=== PATIENT | female | born 1990 | race Caucasian/White ===

== ENCOUNTER → 2017-06-21 05:06 | Emergency (ER) | payer OTHER ==
[~2017-06-21 05:06] MED LIST: Acetaminophen IV 1GM/100ML * 1,000 MG in PREMIX* 0 ML IVPB ONE; Labetalol IV* 5 MG/ML 20 ML VIAL IV PUSH ONE; NS 0.9% 1000 ML* 1,000 ML IV ONE; Ondansetron INJ* 2 MG/ML VIAL IV ONE
[2017-06-21 07:27] LABS: Urine Bacteria Absent (Absent); Urine Bilirubin Negative (Negative); Urine Glucose 1+(50 mg/dL) (Negative); Urine Nitrite Negative (Negative)
[2017-06-21 08:48] LABS: Hematocrit 36 % (35-47); Hemoglobin 12.2 g/dl (12.0-16.0); Mean Corpuscular HGB Conc 34 g/dl (31-36); Mean Corpuscular Hemoglobin 29 pg (27-31); Mean Corpuscular Volume 85 fL (80-97); Mean Platelet Volume 8 um3 (7.4-10.4); Red Blood Count 4.27 10^6/ul (4.0-5.4); Red Cell Distribution Width 14 % (10.5-15); White Blood Count 13.2 10^3/ul (3.5-10.8)
[2017-06-21 09:02] LABS: Albumin 3.7 g/dL (3.2-5.2); Calcium 9.2 mg/dL (8.6-10.3); EGFR African American 171.8 (>60); EGFR Non-African American 133.6 (>60); Globulin 3.5 g/dL (2-4); Potassium 3.7 mmol/L (3.5-5.0); Total Bilirubin 0.4 mg/dL (0.2-1.0); Total Protein 7.2 g/dL (6.4-8.9)
[2017-06-21 10:15] LABS: Magnesium 1.8 mg/dL (1.9-2.7)
--- NOTE | 2017-06-21 12:33 | ED ---
Jean Orlando Angela, scribed for Jonathon Ledesma MD on 06/21/17 at 0808 . Headache - HPI Summary HPI Summary: This pt is a 26 y/o female, currently 10 weeks , presenting to [facility] c/o sudden onset of headache since 1600 yesterday. She additionally c/o nausea and vomiting. Pt notes 5 episodes of emesis since 0300 today. She states this is the worst headache of her life. Pt reports her headache in located in the frontal area and it has progressively worsened. She describes her headache as constant pressure with intermittent throbbing. When her headache began she was at rest and it became suddenly worse within the period of 5 minutes. Yesterday, her pain was rated 10/10 in severity, currently it is rated 8/10 in severity. She denies visual changes, problems walking, photophobia, neck pain, LE pain, UE pain, dysuria. Her pain is aggravated when her head is down and lifts her head up. Pt took Tylenol yesterday but was unable to keep it down. Pt states she has never had emesis with her past headaches and they usually only last approximately 1 hour. She reports usually Tylenol alleviates her pain. During her last , she had mild headaches without nausea or vomiting. PMHx: HTN with . Pt denies any past surgical history. - History Of Current Complaint Chief Complaint: EDHeadache Stated Complaint: HEADACHE/VOMITING Hx Obtained From: Patient Onset/Duration: Started hours ago Initially Headache Was: "Worst Headache Ever" Timing: Hours Character: Throbbing - intermittent, Pressure - constant Associated Signs And Symptoms: Nausea, Vomiting, Other (Noted In Comments) - NEG : visual changes, photophobia, neck pain, LE pain, UE pain, dysuria - Allergies/Home Medications Allergies/Adverse Reactions: Allergies Allergy/AdvReac Type Severity Reaction Status Date / Time No Known Allergies Allergy Verified 09/03/14 05:17 PMH/Surg Hx/FS Hx/Imm Hx Endocrine/Hematology History: Denies: Hx Diabetes Cardiovascular History: Reports: Hx Hypertension - with Respiratory History: Reports: Hx Asthma Infectious Disease History: No Infectious Disease History: Denies: Traveled Outside the [place] in Last 30 Days - Family History Known Family History: Positive: Other - paternal grandfather: aneurysm, HTN, high cholesterol - Social History Alcohol Use: Rare Substance Use Type: Reports: None Smoking Status (MU): Never Smoked Tobacco Have You Smoked in the Last Year: No Review of Systems Negative: Photophobia, Blurred Vision, Diplopia Positive: Vomiting, Nausea Negative: dysuria Positive: Other - Negative LE pain or UE pain Neurological: Other - NEGATIVE: gait problems Positive: Headache All Other Systems Reviewed And Are Negative: Yes Physical Exam - Summary Physical Exam Summary: Appearance: Well-appearing, Well-nourished Skin: Warm Eyes: Normal. PERRL about 4 mm equal lateral. No photophobia. EOMI ENT: Normal . No phonophobia. Neck: Supple, nontender. Normal ROM of neck. Respiratory: Clear to auscultation Cardiovascular: Normal Abdomen: Soft, nontender Bowel: Present Musculoskeletal: Normal, Strength/ROM Intact. normal ROM of neck in all directions. Neurological: Normal, A&Ox3. No neurological deficits. Cranial nerves II-XII are intact. Normal coordinations. Negative Kernig's and brudzinski's signs. No photophobia Psychiatric: Normal Triage Information Reviewed: Yes Vital Signs On Initial Exam: Initial Vitals Temp Pulse Resp BP Pulse Ox 98.0 F 103 16 126/82 98 06/21/17 05:18 06/21/17 05:18 06/21/17 05:18 06/21/17 05:18 06/21/17 05:18 Vital Signs Reviewed: Yes - Shala Coma Scale Coma Scale Total: 15 Diagnostics - Vital Signs Vital Signs Temp Pulse Resp BP Pulse Ox 06/21/17 05:18 98.0 F 103 16 126/82 98 - Laboratory Lab Results: Lab Results 06/21/17 Range/Units 06:10 Urine Color Annie Urine Appearance Turbid Urine pH 5.0 (5-9) Ur Specific Bethany 1.036 H (1.010-1.030) Urine Protein 2+(100 mg/dl) H (Negative) Urine Ketones 2+ H (Negative) Urine Blood Negative (Negative) Urine Nitrate Negative (Negative) Urine Bilirubin Negative (Negative) Urine Urobilinogen Negative (Negative) Ur Leukocyte Esterase Negative (Negative) Urine WBC (Auto) Absent (Absent) Urine RBC (Auto) Absent (Absent) Amorphous Crystals Present H (Absent) Urine Bacteria Absent (Absent) Urine Glucose 1+(50 mg/dl) H (Negative) Urine Ascorbic Acid * H (Negative) Result Diagrams: 06/21/17 08:17 06/21/17 08:17 Lab Statement: Any lab studies that have been ordered have been reviewed, and results considered in the medical decision making process. Re-Evaluation - Re-Evaluation First Eval Re-Evaluation Time: 12:02 Comment: Pt is feeling better. Headache Course/Dx - Course Assessment/Plan: feels better on reevaluation, instructed to fu with obgyn for proteinuria during adn to return for any worsneing headache sxs. agrees to an cong [email or web address] . - Diagnoses Provider Diagnoses: Headache Discharge - Discharge Plan Condition: Improved Disposition: HOME Prescriptions: Ondansetron ODT TAB* [Zofran 4 MG Odt TAB*] 4 mg PO Q8H PRN #6 tab.odt PRN Reason: Nausea - Refractory Patient Education Materials: Acute Headache (ED) Referrals: Taylor Glaser [Primary Care Provider] - Kaleb Saywer MD [Medical Doctor] - Additional Instructions: PLEASE MAKE AN APPOINTMENT FIRST THING IN THE MORNING TO BE SEEN BY YOUR UX ENGINEER TO ADDRESS PROTEIN IN YOUR URINE PLEASE RETURN TO THE EMERGENCY ROOM IF YOU HAVE ANY WORSENING OR CONCERNING SYMPTOMS The documentation as recorded by the Jean butt Angela accurately reflects the service I personally performed and the decisions made by me, Jonathon Ledesma MD.
[2017-06-21 12:49] VITALS: BP 132/68
== END | disposition home or self-care (01) ==
LOC: ED 05:06
DX: O13.1 Gestational [pregnancy-induced] hypertension without significant proteinuria, first trimester (principal); R51 Headache; R11.0 Nausea; Z3A.10 10 weeks gestation of pregnancy; J45.909 Unspecified asthma, uncomplicated
CPT/HCPCS: 36415; 80053; 81003; 81015; 83735; 85025; 85610; 85730; 96365; 96375; 99282; J2405

== ENCOUNTER 2018-01-02 10:15 | Inpatient (IN) | payer OTHER ==
[2018-01-02] MEDS ORDERED: Oxytocin in LR* 20 UNITS/1,000 ML BAG IVPB SCH (14:00)
--- NOTE | 2018-01-02 14:22 | HP ---
General Information - General Information Maternal Age: 27 Grav: 3 Para: 2 SAB: 0 IEA: 0 Estimated Due Date: 01/11/18 Determined By: LMP Gestational Age in Weeks and Days: 38 Weeks and 5 Days Maternal Blood Type and Rh: O Positive - Results this Serology/RPR Result: Non-Reactive Rubella Result: Immune HBsAg Result: Negative HIV Result: Negative GBS Culture Result: Negative Past Medical History Delivery History: Hx Uncomplicated Vaginal Delivery, See Records Pertinent Past Medical History: See Records - Obesity BMI 47.9, Asthma (childhood), HTN with prior Pertinent Past Surgical History: See Records Pertinent Family History: See Records - Antepartal Records Antepartal Records: Reviewed, Complicated by: - Maternal obesity and Macrosomia by ultrasound. Review of Systems Constitutional: Comfortable CV Complaint: No Respiratory: Shortness of Breath: No Gastrointestinal: No Nausea/Vomiting, Normal Bowel Movement Genitourinary: Leaking Fluid, No Dysuria, No Bleeding Musculoskeletal: No Complaint Neurological: No Headache, No Visual Changes Movement: Normal Exam Allergies/Adverse Reactions: Allergies No Known Allergies Allergy (Verified 09/03/14 05:17) Height 5' 5" Weight 318 lbs Temp 98.8 BP 134/59 P 76 RR 17 Lab Values - Entire Visit: Laboratory Tests 01/02/18 10:44 Vag Amniotic Fld Detect Positive - Measurements Height: 5 ft 5 in Weight: 318 lb Weight in lbs: 318 Body Mass Index (BMI): 52.9 Pre- Weight: 285 lb Weight Gained This : 33 lbs and 0 ozs - Exam Abdomen: No Upper Quadrant Pain Breast: Breast Exam Deferred CVA: No CVA Tenderness Extremities: No Edema Heart: Normal Rhythm/Heart Sounds HEENT: No Significant Findings Lungs: Clear Bilaterally Rectal: Rectal Exam Deferred Reflexes: DTR 2+ Thyroid: No Thyromegaly - Abdominal Exam Abdomen Exam: Non-Tender - Ultrasound/Biophysical Profile Ultrasound Status: Not Done Targeted Exam Findings See L&D Outpatient Visit Provider Note for Findings: N/A Cervical Exam: 6cm Effacement: 80% Station: 0 Presenting Part: Vertex Membrane Status: SROM Amniotic Fluid Evaluation: Positive ROM Plus EFM Findings - External Monitor Findings External Monitor Findings: Accelerations Present Contractions: None Assessment/Plan - Reason for Visit Reason for Visit: Spontaneous rupture of membranes, 38 weeks gestational age. - Obstetrical Risk Factors Obstetrical Risk Factors: Obesity - Plan Plan: Induction
[2018-01-02 14:50] LABS: ABS Basophils 0 10^3/ul (0-0.2); ABS Eosinophils 0.1 10^3/ul (0-0.6); ABS Monocytes 0.8 10^3/ul (0-0.8); ABS Neutrophils 11.6 10^3/ul (1.5-7.7); ABS Nucleated RBC 0 10^3/ul; Eosinophil % 0.8 % (0-6); Hematocrit 32 % (35-47); Hemoglobin 10.6 g/dl (12.0-16.0); Lymphocyte % 13.9 % (25-47); Mean Corpuscular HGB Conc 33 g/dl (31-36); Mean Corpuscular Hemoglobin 27 pg (27-31); Mean Corpuscular Volume 81 fL (80-97); Mean Platelet Volume 8.5 um3 (7.4-10.4); Nucleated Red Blood Cells % 0; Platelet Count 237 10^3/ul (150-450); Red Blood Count 3.95 10^6/ul (4.0-5.4); Red Cell Distribution Width 15 % (10.5-15); White Blood Count 14.7 10^3/ul (3.5-10.8)
[2018-01-02] MEDS ORDERED: OBEPIDURAL* 0 ML EPIDURAL ONE (19:36)
[2018-01-02] MEDS ORDERED: Acetaminophen TAB* 325 MG PO PRN (21:06)
[2018-01-02] MEDS ORDERED: Glycerin ADULT SUPP PR PRN (21:06)
[2018-01-02] MEDS ORDERED: Dibucaine 1% 28.35 GM TUBE PR PRN (21:06)
[2018-01-02] MEDS ORDERED: Witch Hazel PAD* JAR TOPICAL PRN (21:06)
[2018-01-03] MEDS: Ibuprofen TAB* 600 MG PO PRN ×3 (04:38→18:50)
[2018-01-03 05:40] LABS: ABS Basophils 0 10^3/ul (0-0.2); ABS Eosinophils 0.1 10^3/ul (0-0.6); ABS Lymphocytes 2.2 10^3/ul (1.0-4.8); ABS Neutrophils 14.7 10^3/ul (1.5-7.7); ABS Nucleated RBC 0 10^3/ul; Eosinophil % 0.4 % (0-6); Hematocrit 30 % (35-47); Hemoglobin 9.8 g/dl (12.0-16.0); Lymphocyte % 12.4 % (25-47); Mean Corpuscular HGB Conc 33 g/dl (31-36); Mean Corpuscular Hemoglobin 27 pg (27-31); Mean Corpuscular Volume 82 fL (80-97); Mean Platelet Volume 8.5 um3 (7.4-10.4); Nucleated Red Blood Cells % 0; Platelet Count 230 10^3/ul (150-450); Red Blood Count 3.64 10^6/ul (4.0-5.4); Red Cell Distribution Width 15 % (10.5-15); White Blood Count 18.1 10^3/ul (3.5-10.8)
[2018-01-03] MEDS: Ferrous Gluconate TAB* 324 MG TAB PO SCH ×2 (07:56→20:33)
[2018-01-03] MEDS: Docusate CAP* 100 MG PO SCH ×3 (07:56→20:33)
[2018-01-03] MEDS ORDERED: Simethicone TAB* 80 MG TAB.CHEW PO SCH (08:30)
[2018-01-04 07:55] VITALS: BP 132/73
[2018-01-04] MEDS: Ibuprofen TAB* 600 MG PO PRN (07:58)
[2018-01-04] MEDS: Ferrous Gluconate TAB* 324 MG TAB PO SCH (07:58)
== END 2018-01-04 12:00 | disposition home or self-care (01) | DRG 560 ==
LOC: MCHOBOUT 10:15 → MCHOB 11:19
PROVIDERS: ADMIT Obstetrics & Gynecology; ATTEND Obstetrics & Gynecology
PROC: 10E0XZZ Delivery of Products of Conception, External Approach (ICD-10-PCS; principal; 2018-01-02)
PROC: 10907ZC Drainage of Amniotic Fluid, Therapeutic from Products of Conception, Via Natural or Artificial Opening (ICD-10-PCS; 2018-01-02)
PROC: 4A1HXCZ Monitoring of Products of Conception, Cardiac Rate, External Approach (ICD-10-PCS; 2018-01-02)
DX: O99.214 Obesity complicating childbirth (principal); Z68.42 Body mass index [BMI] 45.0-49.9, adult; E66.9 Obesity, unspecified; O36.63X0 Maternal care for excessive fetal growth, third trimester, not applicable or unspecified; Z3A.38 38 weeks gestation of pregnancy; Z37.0 Single live birth; O90.81 Anemia of the puerperium
CPT/HCPCS: 36415; 84112; 85025; 86850; 86900; 86901; A9270-GY